=== PATIENT | male | born 1950 | race Caucasian/White ===

== ENCOUNTER 2021-12-30 07:00 | Day surgery (SDC) | payer OTHER, SELFPAY ==
--- NOTE | 2021-12-30 | IMM_PTH ---
PATIENT: SERGEY QUILES LOC: EN U#:[id number] AGE/SX: 71/M ROOM: RE12/30/[address]: Dr. 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 Localization is made via biotin free immunoperoxidase method. Appropriate controls are performed and reacted as expected. Results on target cell population are indicated in the following table: RESULTS: ANTIBODY / CLONE RESULT P53 (DO-7) negative Ki-67 (30-9) positive, low These tests were developed and their performance characteristics determined by [facility]. They may not have been cleared or approved by the U.S. Food and Drug Administration. The FDA has determined that such clearance or approval is not necessary. The above immunohistochemical/dualISH markers are ordered and reviewed by the Pathologist. INTERPRETATION: Gastroesophageal junction, biopsy: Negative for dysplasia. SIOMARA:michelle 01/03/2022
[2021-12-30 07:29] VITALS: BP 144/83; PULSE 68; RESP 16; TEMP 37.1; O2SAT 98; BMI 28.1
[2021-12-30] MEDS: Lactated Ringers 1,000 ML 30 ML IV (07:45)
--- NOTE | 2021-12-30 08:00 | EGD_PTH ---
PATIENT: SERGEY QUILES LOC: EN U#:[id number] AGE/SX: 71/M ROOM: RE12/30/[address]: Dr. 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 Moderate chronic inflammation. Negative for dysplasia. See comment. SIOMARA:michelle 01/02/2022 COMMENT Alcian blue/PAS stain with matched control is used in the evaluation of the specimen. Immunohistochemistry ([id number]) for P53 and Ki-67 will be performed and results will be reported separately. MICROSCOPIC DESCRIPTION Slides are reviewed. GROSS DESCRIPTION Received in fixative is one container labeled with the patient's name and designated gastroesophageal junction. The specimen consists of multiple irregular fragments of light grimm soft tissue that in aggregate measure 1 x 0.5 x 0.1 cm. The specimen is totally submitted in one cassette. / AM:michelle 12/30/2021 TC:5 CPT: 41950, 91544
--- NOTE | 2021-12-30 08:13 | PCM.HP.BLA ---
History and Physical Date of Admission: 12/30/21 Intake Vital Signs 11/30/21 13:34 Height 5 ft 10 in Weight: 205 lb 4 oz BMI 29.4 BP 124/73 H Blood Pressure Location Rt brachial Position Sitting Respiration 18 Pulse 74 Pulse Source NIBP Temp 98.1 F Temp Source Temporal Pulse Oximetry (%) 96 Oxygen Delivery Method room air Intake Visit Reasons: UPPER AND LOWER SCOPE Chief Complaint: egd/c-scope [employer] Loans Officer Required: No Is patient in pain?: No Allergies No Known Allergies Allergy (Verified 11/30/21 13:35) Medications atorvastatin 20 mg tablet 20 mg PO QHS 11/30/21 [History Confirmed 11/30/21] fluticasone propionate 50 mcg/actuation nasal spray,suspension 1 spray INTRANASAL DAILY 11/30/21 [History Confirmed 11/30/21] omeprazole 20 mg capsule,delayed release 20 mg PO BID 11/30/21 [History Confirmed 11/30/21] vit C 250 mg-E 90 mg-zinc 40 mg-copper 1 xl-[id number]-swhgsv chew tablet 1 tab PO QAM AND QPM 11/30/21 [History Confirmed 11/30/21] PFSH Medical History Kilgore esophagus GERD (gastroesophageal reflux disease) Hemochromatosis Hiatal hernia Hyperlipidemia Osteoarthritis Surgical History History of cholecystectomy History of colonoscopy History of esophagogastroduodenoscopy (EGD) History of surgery on wrist History of tonsillectomy Family History Mother Colon cancer Social History Smoking Status: Former smoker HPI HPI HPI: SERGEY QUILES, is a 71 M who presents to the office today for screening colonoscopy and EGD. The patient need surveillance EGD as he has Kilgore's esophagus and his last 1 was about 3 to 4 years ago. Patient is also due for screening colonoscopy. He denies any abdominal pain or blood in his stool. ROS General General: No weight change or fatigue HEENT HEENT: No difficulty swallowing Endo Endocrine: No thyroid disease Musc Musculoskeletal: No back problems or arthritis Cardio Cardiovascular: No pacemaker, heart disease, atrial fibrillation, high blood pressure, heart attack, heart stent, palpitations or chest pain Psych Psychiatric: No depression or anxiety Resp Respiratory: No shortness of breath, No cough, No COPD, No asthma and No emphysema Gastro Gastrointestinal: No abdominal pain, No nausea or vomiting, No diarrhea, No constipation, No blood in stool, No acid reflux, No hemorrhoids, No ulcers, No gallbladder problem and No black,tarry stools Nba Hematologic: No blood thinners Exam Const General: cooperative Orientation: alert and oriented x3 HENND Head: normal to inspection Neck Neck: normal visual inspection and full ROM Chest Chest palpation & inspection: normal inspection of the chest Resp Effort & Inspection: normal respiratory effort Auscultation: clear to auscultation bilaterally Cardio Rate: regular rate Rhythm: regular rhythm GI Inspection: non-distended Palpation: soft and nontender Skin General: no rashes or lesions noted Neuro General: patient alert and patient oriented x3 Extrem General: full ROM Psych Appearance: grossly normal Mental Status: mental status grossly normal Assessment and Plan Assessment and Plan (1) Kilgore esophagus: Status: Acute Qualifiers: Kilgore's esophagus type: without dysplasia Qualified Code(s): K22.70 - Kilgore's esophagus without dysplasia (2) Screen for colon cancer: Status: Acute Plan - Dr. Kevan Serrano MD: Plan for EGD with biopsies of the distal esophagus for Kilgore's and plan for screening colonoscopy. I explained endoscopy in detail to the patient. I explained the risks including but not limited to stroke or heart attack with anesthesia, perforation of the GI tract, bleeding, infection. I explained that any of these could necessitate further emergency surgery. The patient understands and all questions were answered sufficiently. The patient wishes to proceed with procedure. Kevan Serrano MD Pager: [facility] [address] [place] [address], [address] [place] [address] Office: I have re-examined the patient. There are no clinical changes since date of exam.
--- NOTE | 2021-12-30 08:52 | OP.EGD_ITS ---
Patient Name: Steven Cody Procedure Date: 12/30/2021 8:19 AM Date of : 1950 Age: 71 Procedure: Upper GI endoscopy Indications: Follow-up of Kilgore's esophagus Providers: Kevan Serrano MD Medicines: Monitored Anesthesia Care Patient Profile: This is a 71 year old male. Refer to note in patient chart for documentation of history and physical. Complications: No immediate complications. Procedure: Pre-Anesthesia Assessment: - Prior to the procedure, a History and Physical was performed, and patient medications and allergies were reviewed. The patient's tolerance of previous anesthesia was also reviewed. The risks and benefits of the procedure and the sedation options and risks were discussed with the patient. All questions were answered, and informed consent was obtained. Prior Anticoagulants: The patient has taken no previous anticoagulant or antiplatelet agents. After reviewing the risks and benefits, the patient was deemed in satisfactory condition to undergo the procedure. After obtaining informed consent, the endoscope was passed under direct vision. Throughout the procedure, the patient's blood pressure, pulse, and oxygen saturations were monitored continuously. The gastroscope was introduced through the mouth, and advanced to the second part of duodenum. The gastroscope was introduced through the and advanced to the. The upper GI endoscopy was accomplished without difficulty. The patient tolerated the procedure well. Scope In: 8:28:22 AM Scope Out: 8:33:46 AM Total Procedure Duration Time 0 hours 5 minutes 24 seconds Findings: There were esophageal mucosal changes secondary to established short-segment Kilgore's disease present in the lower third of the esophagus. Mucosa was biopsied with a cold forceps for histology in 4 quadrants in the lower third of the esophagus. One specimen bottle was sent to pathology. A medium-sized hiatal hernia was present. The examined duodenum was normal. Impression: - Esophageal mucosal changes secondary to established short-segment Kilgore's disease. Biopsied. - Medium-sized hiatal hernia. - Normal examined duodenum. Recommendation: - Await pathology results. - Discharge patient to home. - Resume previous diet. - Continue present medications. Procedure Code(s): --- Professional --- 10662, Esophagogastroduodenoscopy, flexible, transoral; with biopsy, single or multiple Diagnosis Code(s): --- Professional --- K22.70, Kilgore's esophagus without dysplasia K44.9, Diaphragmatic hernia without obstruction or gangrene CPT copyright 2017 [employer]. All rights reserved. The codes documented in this report are preliminary and upon setup technician review may be revised to meet current compliance requirements. Kevan Serrano MD 12/30/2021 8:52:28 AM This report has been signed electronically. Number of Addenda: 0 Note Initiated On: 12/30/2021 8:19 AM
--- NOTE | 2021-12-30 08:53 | OP.COLON_ITS ---
Patient Name: Steven Cody Procedure Date: 12/30/2021 8:37 AM Date of : 1950 Age: 71 Procedure: Colonoscopy Indications: Screening for colorectal malignant neoplasm Providers: Kevan Serrano MD Medicines: Monitored Anesthesia Care Patient Profile: This is a 71 year old male. Refer to note in patient chart for documentation of history and physical. Last Colonoscopy: none. The patient's first colonoscopy is today. Complications: No immediate complications. Procedure: Pre-Anesthesia Assessment: - Prior to the procedure, a History and Physical was performed, and patient medications and allergies were reviewed. The patient's tolerance of previous anesthesia was also reviewed. The risks and benefits of the procedure and the sedation options and risks were discussed with the patient. All questions were answered, and informed consent was obtained. Prior Anticoagulants: The patient has taken no previous anticoagulant or antiplatelet agents. After reviewing the risks and benefits, the patient was deemed in satisfactory condition to undergo the procedure. - Prior to the procedure, a History and Physical was performed, and patient medications and allergies were reviewed. The patient's tolerance of previous anesthesia was also reviewed. The risks and benefits of the procedure and the sedation options and risks were discussed with the patient. All questions were answered, and informed consent was obtained. Prior Anticoagulants: The patient has taken no previous anticoagulant or antiplatelet agents. After reviewing the risks and benefits, the patient was deemed in satisfactory condition to undergo the procedure. After I obtained informed consent, the scope was passed under direct vision. Throughout the procedure, the patient's blood pressure, pulse, and oxygen saturations were monitored continuously. The Duodenoscope was introduced through the anus and advanced to the cecum, identified by appendiceal orifice and ileocecal valve. Scope In: 8:38:21 AM Scope Withdrawal Time 0 hours 6 minutes 4 seconds Scope Out: 8:51:00 AM Total Procedure Duration Time 0 hours 12 minutes 39 seconds Findings: The entire examined colon appeared normal on direct and retroflexion views. Impression: - The entire examined colon is normal on direct and retroflexion views. - No specimens collected. Recommendation: - Discharge patient to home. - Resume previous diet. - Continue present medications. - Repeat colonoscopy is not recommended due to current age (66 years or older) for screening purposes. Procedure Code(s): --- Professional --- 84346, Colonoscopy, flexible; diagnostic, including collection of specimen(s) by brushing or washing, when performed (separate procedure) Diagnosis Code(s): --- Professional --- Z12.11, Encounter for screening for malignant neoplasm of colon CPT copyright 2017 [employer]. All rights reserved. The codes documented in this report are preliminary and upon medical billing coder review may be revised to meet current compliance requirements. Kevan Serrano MD 12/30/2021 8:53:33 AM This report has been signed electronically. Number of Addenda: 0 Note Initiated On: 12/30/2021 8:37 AM
[2021-12-30 08:55] VITALS: BP 107/78; BP 144/83; PULSE 71; RESP 16; TEMP 36.8; O2SAT 97
[2021-12-30 09:00] VITALS: BP 101/84; BP 144/83; PULSE 68; RESP 16; O2SAT 98
[2021-12-30 09:05] VITALS: BP 112/70; BP 144/83; PULSE 75; RESP 16; O2SAT 98
[2021-12-30 09:10] VITALS: BP 125/86; BP 144/83; PULSE 64; RESP 16; TEMP 36.6; O2SAT 100
[2021-12-30 09:23] VITALS: BP 144/83
== END 2021-12-30 09:43 | disposition home or self-care (01) ==
LOC: EN 07:06 → AC 07:11
PROVIDERS: Visit Provider Surgery
PROC: 0DJD8ZZ Inspection of Lower Intestinal Tract, Via Natural or Artificial Opening Endoscopic (ICD-10-PCS; CPT 45378; principal; 2021-12-30 07:55)
DX: Z12.11 Encounter for screening for malignant neoplasm of colon (principal); K22.70 Barrett's esophagus without dysplasia; K44.9 Diaphragmatic hernia without obstruction or gangrene; K21.9 Gastro-esophageal reflux disease without esophagitis; E78.00 Pure hypercholesterolemia, unspecified; F12.90 Cannabis use, unspecified, uncomplicated; Z80.0 Family history of malignant neoplasm of digestive organs; Z79.899 Other long term (current) drug therapy; Z87.891 Personal history of nicotine dependence
CPT/HCPCS: 43239; 45378; 88305; 88313; 88341; 88342; J7120

== ENCOUNTER 2024-11-18 09:19 | Day surgery (SDC) | payer OTHER, SELFPAY ==
--- NOTE | 2024-11-13 10:23 | PAT.ANESEVAL ---
Pre-Assessment Diagnosis/Proposed Procedure Planned Operative Procedure(s): EGD Anesthesia History Anesthesia History - pre sales network engineer: Anesthesia History - pre sales network engineer Hx Hospitalization No 11/13/24 09:23 Any Problems With Anesthesia No 11/13/24 09:23 Cholinesterase deficiency No 11/13/24 09:23 You/Your Family Experience No 11/13/24 09:23 fever (hyperthermia) with Relationship Recent Exposure to Contagious No 12/30/21 07:29 Disease Does patient have nerve No 11/13/24 09:23 stimulator Patient instructed to have device shut off --Does patient have Pacemaker or ICD? When Was Last Pacemaker Check QUESTION #4 FULL TEXT: You/Your Family Experience fever (hyperthermia) with Anesthesia Last Oral Intake Last Oral intake: Last Oral Intake NPO since Meds taken in AM with sips of water? Meds patient instructed to take am of surgery PONV PONV - pre sales network engineer: PONV - pre sales network engineer Female No 11/13/24 09:23 HX of Motion Sickness No 11/13/24 09:23 HX of N/V After Surgery No 11/13/24 09:23 Non-Smoker No 11/13/24 09:23 Duration of Surgery greater No 11/13/24 09:23 than 60 minutes Number of Risk Factors PONV Score Height & Weight Height & Weight: Anesthesia: Height & Weight Height 5 ft 9 in 10/22/24 09:09 Respiratory Assessment Respiratory Assessment - pre sales network engineer: Respiratory Tract Infection Hx - pre sales network engineer Hx Respiratory Tract Infection No 11/13/24 09:23 STOP Sleep Apnea STOP Sleep Apnea - pre sales network engineer: STOP Sleep Apnea - pre sales network engineer Hx Hypertension No 11/13/24 09:23 Hx Sleep Apnea No 11/13/24 09:23 CPAP BIPAP Do you snore loudly (louder No 11/13/24 09:23 than talking or can be heard Do you often feel tired/ No 11/13/24 09:23 fatigued/ sleepy during daytime? Has anyone observed you stop No 11/13/24 09:23 breathing during sleep? STOP Results Negative 11/13/24 09:23 QUESTION #5 FULL TEXT : Do you snore loudly (louder than talking or can be heard through closed doors)? Tobacco Use History Tobacco Use History - pre sales network engineer: Tobacco Use History - pre sales network engineer Tobacco Use Smoking Status Former smoker 11/13/24 09:23 Hx Tobacco Use No 11/13/24 09:23 Years Smoking Packs Smoked per Day Smoking Cessation Date was Yes - quit smoking within 15 11/13/24 09:23 within the last 15 years years Hx Smoking Cessation Date 07/30/17 11/13/24 09:23 Hx Smoking Cessation Counseling Hematologic Medial History Hematologic Hx - pre sales network engineer: Hematologic Medical Hx - speech and language assistant Hx of Blood Transfusion No 11/13/24 09:23 Hx of Transfusion in last 3 No 11/13/24 09:23 Months Date of Last Transfusion (if within last 3 months) Ever experience any problems No 11/13/24 09:23 with transfusion(s)? Specify any problems Hx of Preganancy in last 3 N/A 11/13/24 09:23 Months Nurse Filling Out Transfusion VCHRISTIN 11/13/24 09:23 & Questions: Date: 11/13/24 11/13/24 09:23 Time: 09:24 11/13/24 09:23 Patient unable to answer at this time (ie. confused, unrespo /Reproduction History /Reproductive History - pre sales network engineer: /Reproductive Hx- pre sales network engineer Hx Now Gestational Age (in weeks): EDC: Hx Hx Para [facility] History Wears glasses Marijuana use High cholesterol Injury of head and neck Gastric reflux Former smoker Hemochromatosis History of stress test GERD (gastroesophageal reflux disease) Osteoarthritis Hemochromatosis Hyperlipidemia Kilgore esophagus Hiatal hernia Home Medications ?Medication ?Instructions ?Recorded ?Last Taken ?Type atorvastatin 20 mg tablet 20 mg PO QHS 11/30/21 Unknown History fluticasone propionate 50 1 spray intranasal DAILY 11/30/21 Unknown History mcg/actuation nasal spray,suspension omeprazole 20 mg capsule,delayed 20 mg PO BID 11/30/21 12/30/21 History release vit C 250 mg-E 90 mg-zinc 40 1 tab PO QAM AND QPM 11/30/21 Unknown History mg-copper 1 yk-zplhhu-tcsbic chew tablet (PreserVision AREDS-2) multivitamin 1 tab PO DAILY 12/28/21 Unknown History aspirin 81 mg tablet,delayed 81 mg PO QDAY 10/22/24 11/12/24 History release (Adult Aspirin Regimen) carboxymethylcellulose sodium 1 % 2 drp RIGHT EYE Q6H 11/13/24 Unknown History eye liquid gel drops (Refresh Liquigel) Allergy/AdvReac Type Severity Reaction Status Date / Time No Known Allergies Allergy Verified 11/13/24 09:17 Family History Mother Colon cancer Surgical History (Updated 11/13/24 @ 09:23 by Lorena Robert) History of surgery on wrist History of colonoscopy History of esophagogastroduodenoscopy (EGD) History of cholecystectomy History of tonsillectomy Social History (Updated 10/22/24 @ 09:09 by Marybeth Scott LPN) Smoking Status: Former smoker alcohol intake: never substance use type: does not use Audit: Pertinent Findings Pertinent Findings EKG Perinent findings: November 02, 2021. Normal sinus rhythm. Right bundle branch block. Recommendation Anesthesia Recommendation Anesthesia recommendation: OPTIMIZED for anesthesia
[2024-11-18] VITALS (7 sets, daily range): BP systolic 95–133; BP diastolic 78–91; PULSE 68–88; RESP 14–18; TEMP 35.8–36.4; O2SAT 95–98; BMI 30.3
--- NOTE | 2024-11-18 10:05 | PCM.PRE.AN2 ---
ASA Classification* ASA Classification ASA Classification: 2 Assessment & Plan Anesthesia* Anesthesia Assessment Anesthesia Assessment: Discussed sedation and/or anesthesia options, risks, benefits, and alternatives with patient/parents/legal guardian/POA. Questions invited. The patient/parents/legal guardian/POA seems to understand and agrees to proceed with anesthesia plan. Reviewed the physical assessment, medical history, allergy history and patient home medications list prior to surgery/procedure/anesthetic and documented any changes. Performed airway and anesthesia risk assessments. Anesthesia Type Anesthesia Type: MAC History Source History Obtained from:: Patient and Chart Anesthesia Focused Assessment* Temperature: 96.5 F Pulse Rate: 88 Blood Pressure: 133/91 Respiratory Rate: 16 Pulse Ox: 98 Oxygen Delivery Method: Room Air Airway Assessment Mouth opens: >3 cm Mallampati Score: III Teeth Condition: Caps/Crowns (Patient has a crown. It is tight.), Chipped/Broken (Patient has a cracked tooth in the right upper molar.) and Missing (Patient is missing several teeth. Rest are tight.) Neck Range of motion (ROM): Full ROM Comment: Full hernandez Focused Labs Anesthesia Preop lab: CBC CHEMISTRY COAG Pre-Assessment Diagnosis/Proposed Procedure Planned Operative Procedure(s): EGD Anesthesia History Anesthesia History - hose seamer: Anesthesia History - hose seamer Hx Hospitalization No 11/13/24 09:23 Any Problems With Anesthesia No 11/13/24 09:23 Cholinesterase deficiency No 11/13/24 09:23 You/Your Family Experience No 11/13/24 09:23 fever (hyperthermia) with Relationship Recent Exposure to Contagious No 11/18/24 09:43 Disease Does patient have nerve No 11/13/24 09:23 stimulator Patient instructed to have device shut off --Does patient have Pacemaker No 11/18/24 09:43 or ICD? When Was Last Pacemaker Check QUESTION #4 FULL TEXT: You/Your Family Experience fever (hyperthermia) with Anesthesia Last Oral Intake Last Oral intake: Last Oral Intake NPO since 21:00 11/18/24 09:43 Meds taken in AM with sips of Yes 11/18/24 09:43 water? Meds patient instructed to take am of surgery PONV PONV - hose seamer: PONV - hose seamer Female No 11/13/24 09:23 HX of Motion Sickness No 11/13/24 09:23 HX of N/V After Surgery No 11/13/24 09:23 Non-Smoker No 11/13/24 09:23 Duration of Surgery greater No 11/13/24 09:23 than 60 minutes Number of Risk Factors PONV Score Height & Weight Height & Weight: Anesthesia: Height & Weight Height 5 ft 10 in 11/18/24 09:43 Weight: 95.8 kg 11/18/24 09:43 Body Mass Index (BMI) 30.3 11/18/24 09:43 Respiratory Assessment Respiratory Assessment - hose seamer: Respiratory Tract Infection Hx - hose seamer Hx Respiratory Tract Infection No 11/13/24 09:23 Any additional information?: Yes Hx Respiratory Tract Infection: Yes (Patient has had some increased phlegm in the back of his throat past month) STOP Sleep Apnea STOP Sleep Apnea - hose seamer: STOP Sleep Apnea - hose seamer Hx Hypertension No 11/13/24 09:23 Hx Sleep Apnea No 11/13/24 09:23 CPAP BIPAP Do you snore loudly (louder No 11/13/24 09:23 than talking or can be heard Do you often feel tired/ No 11/13/24 09:23 fatigued/ sleepy during daytime? Has anyone observed you stop No 11/13/24 09:23 breathing during sleep? STOP Results Negative 11/13/24 09:23 QUESTION #5 FULL TEXT : Do you snore loudly (louder than talking or can be heard through closed doors)? 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 Specify any problems Hx of Preganancy in last 3 N/A 11/13/24 09:23 Months Nurse Filling Out Transfusion VCHRISTIN 11/13/24 09:23 & Questions: Date: 11/13/24 11/13/24 09:23 Time: 09:24 11/13/24 09:23 Patient unable to answer at this time (ie. confused, unrespo /Reproduction History /Reproductive History - hose seamer: /Reproductive Hx- hose seamer Hx Now Gestational Age (in weeks): EDC: Hx Hx Para Hx Section [facility] Medical History Wears glasses Marijuana use High cholesterol Injury of head and neck Gastric reflux Former smoker Hemochromatosis History of stress test GERD (gastroesophageal reflux disease) Osteoarthritis Hemochromatosis Hyperlipidemia Kilgore esophagus Hiatal hernia Home Medications ?Medication ?Instructions ?Recorded ?Last Taken ?Type atorvastatin 20 mg tablet 20 mg PO QHS 11/30/21 11/17/24 History fluticasone propionate 50 1 spray intranasal DAILY 11/30/21 11/17/24 History mcg/actuation nasal spray,suspension omeprazole 20 mg capsule,delayed 20 mg PO BID 11/30/21 11/17/24 History release vit C 250 mg-E 90 mg-zinc 40 1 tab PO QAM AND QPM 11/30/21 11/17/24 History mg-copper 1 ma-vjthqa-nycnjx chew tablet (PreserVision AREDS-2) multivitamin 1 tab PO DAILY 12/28/21 11/17/24 History aspirin 81 mg tablet,delayed 81 mg PO QDAY 10/22/24 11/12/24 History release (Adult Aspirin Regimen) carboxymethylcellulose sodium 1 % 2 drp RIGHT EYE Q6H 11/13/24 11/18/24 History eye liquid gel drops (Refresh Liquigel) Allergy/AdvReac Type Severity Reaction Status Date / Time No Known Allergies Allergy Verified 11/18/24 09:42 Family History Mother Colon cancer Surgical History History of surgery on wrist History of colonoscopy History of esophagogastroduodenoscopy (EGD) History of cholecystectomy History of tonsillectomy Social History Smoking Status: Former smoker alcohol intake: never substance use type: does not use Review of Systems (Anesthesia) ROS Narrative System reviewed and no additional complaints, except as documented.
--- NOTE | 2024-11-18 10:24 | PCM.HP.BLA ---
History and Physical Date of Admission: 11/18/24 Intake Vital Signs 12/30/2206:29 10/22/2508:09 Height 5 ft 10 in 5 ft 9 in Weight: 211 lb 8 oz BMI 31.2 BP 147/89 H Blood Pressure Location Rt brachial Position Sitting Respiration 18 Pulse 82 Pulse Source Monitor Temp 97.9 F Temp Source Temporal Pulse Oximetry (%) 98 Oxygen Delivery Method room air Intake Visit Reasons: RECALL EGD Chief Complaint: recall egd Is patient in pain?: No Allergies No Known Allergies Allergy (Verified 10/22/24 09:09) Medications ?Medication ?Instructions ?Recorded ?Confirmed ?Type atorvastatin 20 mg tablet 20 mg PO QHS 11/30/21 10/22/24 History fluticasone propionate 50 1 spray intranasal DAILY 11/30/21 10/22/24 History mcg/actuation nasal spray,suspension omeprazole 20 mg capsule,delayed 20 mg PO BID 11/30/21 10/22/24 History release vit C 250 mg-E 90 mg-zinc 40 1 tab PO QAM AND QPM 11/30/21 10/22/24 History mg-copper 1 se-mbznse-pioikb chew tablet (PreserVision AREDS-2) multivitamin 1 tab PO DAILY 12/28/21 10/22/24 History aspirin 81 mg tablet,delayed 81 mg PO QDAY 10/22/24 10/22/24 History release (Adult Aspirin Regimen) Have you fallen in the past year?: No PFSH Medical History Wears glasses Marijuana use High cholesterol Injury of head and neck Gastric reflux Former smoker Hemochromatosis History of stress test GERD (gastroesophageal reflux disease) Osteoarthritis Hemochromatosis Hyperlipidemia Kilgore esophagus Hiatal hernia Surgical History History of surgery on wrist History of colonoscopy History of esophagogastroduodenoscopy (EGD) History of cholecystectomy History of tonsillectomy Family History Mother Colon cancer Social History (Updated 10/22/24 @ 09:09 by Marybeth Scott LPN) Smoking Status: Former smoker alcohol intake: never substance use type: does not use HPI HPI HPI: Patient is a 74-year-old male here for surveillance EGD for his Kilgore's esophagus. He has no new issues or concerns. ROS General General: No weight change, appetite, fatigue, colon cancer, breast cancer or weakness HEENT HEENT: No difficulty swallowing, eye injury, eye surgery, swollen glands or hoarseness Endo Endocrine: No thyroid disease, diabetes mellitus, thyroid cancer, Hair loss, heat intolerance or cold intolerance Skin Skin: No rash or changing moles Musc Musculoskeletal: Yes arthritis; No back problems, rheumatoid arthritis, gout or joint pain Cardio Cardiovascular: Yes high blood pressure; No murmur, pacemaker, heart disease, atrial fibrillation, heart attack, heart stent, palpitations, shortness of breath with exertion or chest pain Psych Psychiatric: No depression, anxiety or hearing voices Resp Respiratory: No shortness of breath, No sleep apnea, Yes cough, No COPD, No asthma, No emphysema and No wheezing Gastro Gastrointestinal: No abdominal pain, No nausea or vomiting, No diarrhea, No constipation, No blood in stool, Yes acid reflux, No hemorrhoids, No ulcers, No gallbladder problem and No black,tarry stools Nba Hematologic: Yes blood thinners, No blood disorders, No bleeding, No anemia and No blood clots Additional Details: 81mg aspirin Neuro Neurologic: No numbness, No tingling and No weakness Exam Const General: cooperative Orientation: alert and oriented x3 HENSD Head: normal to inspection Neck Neck: normal visual inspection and full ROM Chest Chest palpation & inspection: normal inspection of the chest Resp Effort & Inspection: normal respiratory effort Auscultation: clear to auscultation bilaterally Cardio Rate: regular rate Rhythm: regular rhythm GI Inspection: non-distended Palpation: soft and nontender Skin General: no rashes or lesions noted Neuro General: patient alert and patient oriented x3 Extrem General: full ROM Psych Appearance: grossly normal Mental Status: mental status grossly normal Assessment and Plan Assessment and Plan (1) GERD (gastroesophageal reflux disease): Status: Acute (2) Kilgore esophagus: Status: Acute Qualifiers: Kilgore's esophagus type: without dysplasia Qualified Code(s): K22.70 - Kilgore's esophagus without dysplasia Orders: Orders EGD Today Plan Plan for EGD to have biopsies of his Kilgore's esophagus I explained endoscopy in detail to the patient. I explained the risks including but not limited to stroke or heart attack with anesthesia, perforation of the GI tract, bleeding, infection. I explained that any of these could necessitate further emergency surgery. The patient understands and all questions were answered sufficiently. The patient wishes to proceed with procedure. Patient will hold his aspirin for 5 days. Kevan Serrano MD Pager: [facility] [address] [place] [address], [address] [place] [address] Office: I have examined the patient and the H&P has been reviewed. There are no clinical changes since date of exam.
--- NOTE | 2024-11-18 10:30 | EGD_PTH ---
PATIENT: SERGEY QUILES LOC: EN U#:[id number] AGE/SX: 74/M ROOM: RE11/18/[address]: Dr. Kevan Serrano MD : 1950 BED: DIS: 11/18/2024 SPEC #: [id number] RECD: 11/18/24 13:37 STATUS: JAXON LISA #: [id number] HILARIA: 11/18/24 10:[address]: Kevan Serrano DEPT: SURGICAL PATHOLOGY RECD BY: Silvestre Lackey ENTERED: 11/18/24 13:37 SP TYPE: EGD BIOPSY LILIA DR: [facility] Tissues: A - Esophagus, NOS Procedures: Surgery Specimen Level IV HEADER OPERATION: EGD, biopsy PRE-OP DIAGNOSIS: GERD, Kilgore's esophagus TISSUE SUBMITTED: A- Distal esophagus biopsy MICROSCOPIC DIAGNOSIS A. Distal esophagus, biopsy: * Kilgore mucosa with reactive/regenerative epithelial change. * Negative for dysplasia - see Comment. COMMENT The slides/images were reviewed in intradepartmental consultation by Dr Kenny Fleming (GI pathology division, [facility]). MICROSCOPIC DESCRIPTION Slides are reviewed. GROSS DESCRIPTION A. Received in fixative is one container labeled with the patient's name and designated Distal esophagus biopsy. The specimen consists of multiple irregular fragments of light grimm soft tissue that in aggregate measure 1.2 x 0.2 x 0.2 cm. The specimen is totally submitted in one cassette. 11/18/2024 CPT:49569
--- NOTE | 2024-11-18 10:44 | OP.CCLET_ITS ---
11/18/2024 [facility] Re : Upper GI endoscopy procedure for Steven [facility] This procedure was performed on Monday, November 18, 2024. My impressions and recommendations are as follows: Impressions : - Esophageal mucosal changes secondary to established long-segment Kilgore's disease. Biopsied. - Large hiatal hernia. - Normal stomach. - Normal examined duodenum. Recommendations : - Discharge patient to home. - Resume previous diet. - Continue present medications. - Resume aspirin at prior dose tomorrow. My findings are described in the full procedure note, which is enclosed. If I can be of further assistance, please feel free to contact me at Doctor phone number(s): , Work: . Sincerely, Kevan Serrano MD 11/18/2024 10:44:10 AM This report has been signed electronically.
--- NOTE | 2024-11-18 10:44 | OP.EGD_ITS ---
Patient Name: Steven Cody Procedure Date: 11/18/2024 10:31 AM Date of : 1950 Age: 74 Procedure: Upper GI endoscopy Indications: Follow-up of Kilgore's esophagus Providers: Kevan Serrano MD Referring MD: [facility] Medicines: Propofol per Anesthesia Patient Profile: This is a 74 year old male. Refer to note in patient chart for documentation of history and physical. Complications: No immediate complications. Estimated blood loss: Minimal. Procedure: Pre-Anesthesia Assessment: - Prior to the procedure, a History and Physical was performed, and patient medications and allergies were reviewed. The patient's tolerance of previous anesthesia was also reviewed. The risks and benefits of the procedure and the sedation options and risks were discussed with the patient. All questions were answered, and informed consent was obtained. Prior Anticoagulants: The patient has taken no anticoagulant or antiplatelet agents except for aspirin. After reviewing the risks and benefits, the patient was deemed in satisfactory condition to undergo the procedure. After obtaining informed consent, the endoscope was passed under direct vision. Throughout the procedure, the patient's blood pressure, pulse, and oxygen saturations were monitored continuously. The gastroscope was introduced through the mouth, and advanced to the third part of duodenum. The upper GI endoscopy was accomplished without difficulty. The patient tolerated the procedure well. Scope In: 10:37:36 AM Scope Out: 10:40:35 AM Total Procedure Duration Time 0 hours 2 minutes 59 seconds Findings: The esophagus and gastroesophageal junction were examined with white light. There were esophageal mucosal changes secondary to established long-segment Kilgore's disease. These changes involved the mucosa extending to the Z-line. Mucosa was biopsied with a cold forceps for histology in 4 quadrants in the lower third of the esophagus. One specimen bottle was sent to pathology. A large hiatal hernia was present. The stomach was normal. The examined duodenum was normal. Impression: - Esophageal mucosal changes secondary to established long-segment Kilgore's disease. Biopsied. - Large hiatal hernia. - Normal stomach. - Normal examined duodenum. Recommendation: - Discharge patient to home. - Resume previous diet. - Continue present medications. - Resume aspirin at prior dose tomorrow. Procedure Code(s): --- Professional --- 00824, Esophagogastroduodenoscopy, flexible, transoral; with biopsy, single or multiple Diagnosis Code(s): --- Professional --- K22.70, Kilgore's esophagus without dysplasia K44.9, Diaphragmatic hernia without obstruction or gangrene CPT copyright 2021 [employer]. All rights reserved. The codes documented in this report are preliminary and upon cannery tender engineer review may be revised to meet current compliance requirements. Kevan Serrano MD 11/18/2024 10:44:10 AM This report has been signed electronically. Number of Addenda: 0 Note Initiated On: 11/18/2024 10:31 AM
--- NOTE | 2024-11-18 10:46 | PCM.POST.ANE ---
Anesthesia: Postop Eval I Current Vital Signs Temperature: 97.5 F Pulse Rate: 68 Blood Pressure: 95/78 Respiratory Rate: 14 Pulse Ox: 96 Oxygen Delivery Method: Room Air Assessment Airway patent: Yes Spontaneous unlabored respirations: Yes Mental status: Awake nausea: No Vomiting: No Anesthesia Complication: No Fluid Hydration Crystalloid volume administer (ml): 10 Total IV fluid infused: 10 Progress Note Anesthesia document: Postop Eval 1 completed: Yes
--- NOTE | 2024-11-18 11:53 | POSTOPAN2_ITS ---
Anesthesia Postop Eval I Sum Postop Eval Completion status Anesthesia document: Postop Eval 1 completed: Yes Anesthesia Postop Eval I Summary Anesthesia Postop Eval I Summary: Anesthesia Postop Eval I: Assessment Summary Airway patent Yes 11/18/24 10:46 SOCIAL MEDIA EXECUTIVE.HBARR Spontaneous unlabored Yes 11/18/24 10:46 SOCIAL MEDIA EXECUTIVE.HBARR respirations Mental status Awake 11/18/24 10:46 SOCIAL MEDIA EXECUTIVE.HBARR nausea No 11/18/24 10:46 SOCIAL MEDIA EXECUTIVE.HBARR Vomiting No 11/18/24 10:46 SOCIAL MEDIA EXECUTIVE.HBARR Anesthesia Postop Eval I: Fluid Summary Crystalloid volume administer 10 11/18/24 10:46 SOCIAL MEDIA EXECUTIVE.HBARR (ml) Colloids volume administered ( ml) Blood Product volume administered (ml) Total IV fluid infused 10 11/18/24 10:46 SOCIAL MEDIA EXECUTIVE.HBARR Anesthesia Postop Eval I: Summary Notes Anesthesia Complication No 11/18/24 10:46 SOCIAL MEDIA EXECUTIVE.HBARR Anesthesia Complication Comment: Post-operative progress note Anesthesia: Postop Eval II Evaluation Mental status: Awake and Calm Pain Level: 0 nausea: No Vomiting: No Complications Anesthesia Complication: No
--- NOTE | 2024-11-18 11:53 | PCM.POSTANE2 ---
Anesthesia Postop Eval I Sum Postop Eval Completion status Anesthesia document: Postop Eval 1 completed: Yes Anesthesia Postop Eval I Summary Anesthesia Postop Eval I Summary: Anesthesia Postop Eval I: Assessment Summary Airway patent Yes 11/18/24 10:46 MUD [email or web address] Spontaneous unlabored Yes 11/18/24 10:46 MUD [email or web address].HBARR respirations Mental status Awake 11/18/24 10:46 MUD [email or web address].HBARR nausea No 11/18/24 10:46 MUD [email or web address].HBARR Vomiting No 11/18/24 10:46 MUD [email or web address].HBARR Anesthesia Postop Eval I: Fluid Summary Crystalloid volume administer 10 11/18/24 10:46 MUD [email or web address].HBARR (ml) Colloids volume administered ( ml) Blood Product volume administered (ml) Total IV fluid infused 10 11/18/24 10:46 MUD [email or web address].HBARR Anesthesia Postop Eval I: Summary Notes Anesthesia Complication No 11/18/24 10:46 MUD GRINDER.HBARR Anesthesia Complication Comment: Post-operative progress note Anesthesia: Postop Eval II Evaluation Mental status: Awake and Calm Pain Level: 0 nausea: No Vomiting: No Complications Anesthesia Complication: No
== END 2024-11-18 11:20 | disposition home or self-care (01) ==
LOC: EN 09:21 → AC 09:41
PROVIDERS: Visit Provider Surgery
PROC: 0DJ08ZZ Inspection of Upper Intestinal Tract, Via Natural or Artificial Opening Endoscopic (ICD-10-PCS; CPT 43235; principal; 2024-11-18 10:25)
DX: K22.70 Barrett's esophagus without dysplasia (principal); K44.9 Diaphragmatic hernia without obstruction or gangrene; E78.00 Pure hypercholesterolemia, unspecified; Z87.891 Personal history of nicotine dependence; K21.9 Gastro-esophageal reflux disease without esophagitis; I10 Essential (primary) hypertension; Z79.01 Long term (current) use of anticoagulants; Z79.899 Other long term (current) drug therapy
CPT/HCPCS: 43239; 88305; A4216